=== PATIENT | female | born 1940 | race Caucasian/White ===

== ENCOUNTER 2020-08-18 07:59 | Observation (INO) | payer MEDICARE, BC ==
[2020-08-18] MEDS ORDERED: Nitroglycerin 0.4 MG TAB 1 EACH ONE (08:35)
[2020-08-18] MEDS ORDERED: Nitroglycerin 2% Ointment 1 INCH/1 GM Packet ONE (08:36)
[2020-08-18] MEDS ORDERED: Morphine 4 MG/ML VIAL ONE (08:36)
[2020-08-18 08:43] LABS: #Monocytes 0.9 10x3/uL (0.0-1.1); #Neutrophils 10.6 10x3/uL (1.5-8.4); %Basophils 0.3 % (0.0-2.0); %Eosinophils 0.3 % (0.0-6.0); %Lymphocytes 7.7 % (18.0-47.0); %Monocytes 7.2 % (0.0-10.0); %Neutrophils 84.1 % (40.0-75.0); Hemoglobin 13.1 g/dL (12.0-15.5); Mean Corpuscular HGB CONC 33.4 g/dL (32.0-36.0); Mean Corpuscular Hemoglobin 30.6 pg (27.0-33.0); Mean Corpuscular Volume 91.6 fl (81.6-98.3); Mean Platelet Volume 10.3 fl (7.4-10.4); Platelet Count 275 10x3/uL (150-450); RBC Distribution Width 12.4 % (11.5-14.5); Red Blood Cell (RBC) Count 4.28 10x6/uL (3.90-5.03); White Blood Cell (WBC) Count 12.6 10x3/uL (3.5-10.5)
[2020-08-18 09:02] LABS: ALT (SGPT) 15 U/L (8-55); AST (SGOT) 14 U/L (5-34); Albumin 4.2 g/dL (3.4-4.8); Alkaline Phosphatase 91 U/L (40-110); Anion Gap 15 mmol/L (10-20); BUN (Urea Nitrogen) 12 mg/dL (9.8-20.1); Bilirubin, Total 0.8 mg/dL (0.2-1.2); CK (CPK) 34 U/L (29-168); Calc. Creatinine Clearance 0 mL/min (70-130); Calcium 9.7 mg/dL (7.8-10.44); Carbon Dioxide 24 mmol/L (23-31); Chloride 106 mmol/L (98-107); Globulin 2.3 g/dL (2.4-3.5); Glucose 121 mg/dL (83-110); Lipase 20 U/L (8-78); Potassium 3.7 mmol/L (3.5-5.1); Protein, Total 6.5 g/dL (5.8-8.1); Sodium 141 mmol/L (136-145)
[2020-08-18] MEDS ORDERED: Fentanyl 100 MCG/2 ML VIAL ONE (10:33)
[2020-08-18] MEDS ORDERED: Aspirin Chewable 81 MG TAB ONE (10:34)
[2020-08-18] MEDS ORDERED: Nitroglycerin 0.4 MG TAB (25 Tab Bottle) SL PRN (11:11)
[2020-08-18 12:30] LABS: Troponin I 0.012 ng/mL (< 0.028)
[2020-08-18] MEDS ORDERED: Acetaminophen 325 MG TAB PO PRN (12:43)
[2020-08-18] MEDS ORDERED: Senokot S 8.6-50 MG TAB PO PRN (12:44)
[2020-08-18] MEDS ORDERED: Acetaminophen/Codeine 30-300mg Tablet PO PRN (12:44)
[2020-08-18] MEDS ORDERED: Lidocaine 2% Viscous Solution 10 ML, Aluminum & Magnesium Hydroxide 30 ML SSW SCH (12:45)
[2020-08-18 15:02] LABS: Troponin I 0.012 ng/mL (< 0.028)
[2020-08-18 16:56] VITALS: BMI 23.6
[2020-08-18] MEDS ORDERED: Atorvastatin Calcium 10 MG TAB PO SCH (21:00)
[2020-08-19 05:33] LABS: Cardiac Risk 1.9 (Less than 4.5)
[2020-08-19] MEDS ORDERED: Levothyroxine Sodium 75 MCG TAB PO SCH (06:00)
[2020-08-19 10:25] LABS: Free T4 (Free Thyroxine) 1.03 ng/dL (0.70-1.48)
[2020-08-19 12:01] VITALS: BP 104/67; TEMP 99
[2020-08-19 16:44] LABS: SARS-CoV-2 PCR by NAA Not Detected (NotDetected)
== END 2020-08-19 11:50 | disposition home or self-care (01) ==
LOC: CSHERS 07:59 → CSHTELE 13:06
PROVIDERS: ADMIT Hospitalist; ATTEND Hospitalist
DX: R07.89 Other chest pain (principal); E78.5 Hyperlipidemia, unspecified; E03.9 Hypothyroidism, unspecified; Z79.899 Other long term (current) drug therapy; Z90.49 Acquired absence of other specified parts of digestive tract; Z20.822 Contact with and (suspected) exposure to COVID-19
CPT/HCPCS: 71275; 80061; 82550; 83690; 84439; 84479; 84484 ×2; 93005; 93306; 97110; 97116; 97139; 97530; 99285; G0378 ×3; U0003; U0005; 36415; 80053; 84443; 85025; 87635; J2270; J3010